=== PATIENT | female | born 2000 | race Caucasian/White ===

== ENCOUNTER 2022-07-17 04:26 | Emergency (ER) | payer BC, SELFPAY ==
[2022-07-17] VITALS (15 sets, daily range): BP systolic 105–148; BP diastolic 60–94; PULSE 68–233; RESP 11–23; TEMP 36.8–37.2; O2SAT 71–99; BMI 24.3
--- NOTE | 2022-07-17 04:20 | ECG_ITS ---
APPROVED REPORT Exam: Resting ECG HR:137 bpm ECG Measurements Heart Rate 137 AXES AL 147 P 73 QRSd 89 QRS 84 QT 330 T 38 QTc 410 Conclusion SINUS TACHYCARDIA NONSPECIFIC ST & T-WAVE ABNORMALITY ABNORMAL RHYTHM ECG UNCONFIRMED REPORT Electronically signed by : Nilton Callejas MD 07/21/2022 16:03:50
--- NOTE | 2022-07-17 04:30 | PC.NURSE ---
Patient arrived to er via wheelchair from home. Patient, upon arrival, was very anxious, unable to speak in complete sentences, was unable to discuss in length what happened and appeared to fixate on different parts of the conversation. Patient was concerned that her friend was not at bedside so her father got her friend so that the patients would calm down. patient is unable to control the movements in her right hand. Right hand continuously shakes and patient appears very concerned about her inability to stop the movements in her right hand.
--- NOTE | 2022-07-17 04:30 | HMH.EDGENADL ---
Discharge Plan Disposition Patient Disposition: Home, Self-Care Condition: Good Chief Complaint: Altered Mental Status Prescriptions Prescriptions: No Action No Known Home Medications Activity Restrictions/Add. Instructions Additional Instructions/Restrictions: At this time was felt you are safe to be discharged from the emergency department. Please refrain from substance abuse. If new or worsening symptoms please do not hesitate to return the emergency department. Clinical Impressions Clinical Impression: Encephalopathy, Alcohol intoxication Instructions Patient Instructions: DI for Altered Mental Status Discharge ED Provider: Semaj Bonilla Adult HPI <Semaj Bonilla MD - Last Filed: 07/17/22 07:47> General Chief complaint: Altered Mental Status Stated complaint: Intoxicated Time Seen by Provider: 07/17/22 04:31 History of Present Illness HPI narrative: Patient is a 22-year-old female with no pertinent past medical history presents to the emergency department for evaluation of intoxication. History is obtained by family members and friends at bedside, patient was [place] an amusement park, had drank multiple drinks at a friend's house, smoked out of a SWFT vape pen cartridge. Shortly after smoking of the vape pen cartridge patient became acutely encephalopathic, speaking nonsensically, flailing extremities with waxing and waning levels of consciousness. They present here for continued evaluation. Review of systems cannot be conducted secondary to encephalopathy. No history of trauma. Related Data Home Medications Medication Instructions Recorded Confirmed No Known Home Medications 07/17/22 07/17/22 Allergies Allergy/AdvReac Type Severity Reaction Status Date / Time Benzodiazepines Allergy Verified 07/17/22 04:54 PFSH <Semaj Bonilla MD - Last Filed: 07/17/22 07:47> [facility] Social History (Updated 07/17/22 @ 07:47 by Semaj Bonilla MD) Smoking Status: Never smoker alcohol intake: current current occupational status: employed Travel in the last 8 weeks: None <Semaj Bonilla MD - Last Filed: 07/17/22 07:47> ROS Obtained: Yes unobtainable due to mental status Physical Exam <Semaj Bonilla MD - Last Filed: 07/17/22 07:47> General General appearance: appears intoxicated and in distress Head Head exam: atraumatic and normocephalic Eye Eye exam: Present PERRL ENT ENT exam: Present mucous membranes moist Neck Neck exam: Present normal inspection Chest Chest inspection: Present normal inspection and symmetric chest wall rise Respiratory Respiratory exam: Present normal lung sounds bilaterally; Absent respiratory distress Cardiovascular Cardiovascular exam: Present normal rhythm and tachycardia Abdominal Exam Abdominal exam: Present soft; Absent tenderness Extremities Exam Extremities exam: Present normal inspection Neurological Exam Neurological exam: Present other (Waxing and waning levels of consciousness, perseverating, rhythmic jerking of the right upper extremity, intermittently conversational. GCS between 12 and 15 on different exams) Psychiatric Psychiatric exam: Present agitated Skin Skin exam: Present warm and dry Medical Decision Making <Semaj Bonilla MD - Last Filed: 07/17/22 07:47> [facility] Pt receiving controlled substance: No Vital Signs: 07/17/22 04:56 07/17/22 04:35 07/17/22 04:45 Temperature 99 F Temperature Source Oral Pulse Rate 233 H 114 H Pulse Rate [Apical] 119 H Respiratory Rate 23 16 19 Blood Pressure Blood Pressure [Left Arm] 136/79 Blood Pressure Mean Blood Pressure Mean [Left Arm] 98 Blood Pressure Source [Left Arm] Automatic Cuff Blood Pressure Position [Left Arm] Sitting 02 Sat by Pulse Oximetry 98 71 L 99 Oxygen Delivery Method Room Air 07/17/22 05:00 07/17/22 05:00 07/17/22 05:15 Temperature Temperature Source Pulse Rate 82 116 H Pulse Rate [
--- NOTE | 2022-07-17 04:40 | CT_ITS ---
PROCEDURE INFORMATION: Exam: CT Head Without Contrast Exam date and time: 07/17/2022 5:14 AM Age: 22 years old Clinical indication: Altered mental status/memory loss; Additional info: Acute encephalopathy TECHNIQUE: Imaging protocol: Computed tomography of the head without contrast. Radiation optimization: All CT scans at this facility use at least one of these dose optimization techniques: automated exposure control; mA and/or kV adjustment per patient size (includes targeted exams where dose is matched to clinical indication); or iterative reconstruction. COMPARISON: No relevant prior studies available. FINDINGS: Brain: No intracranial hemorrhage. No mass. No definite edema. Cerebral ventricles: No hydrocephalus. Paranasal sinuses: No acute sinusitis. Mastoid air cells: No significant effusion. Orbital cavities: Unremarkable as visualized. Bones/joints: No acute fracture. Soft tissues: Unremarkable. IMPRESSION: No definite acute intracranial abnormality. If symptoms persist, consider MRI.
[2022-07-17 04:45] LABS: VBG Base Excess -6.1 mmol/L (-2.4-2.3); VBG HCO3 19.9 mmol/L (23-30); VBG PCO2 38.9 mmol/L (35-51); VBG PH 7.33 mmol/L (7.31-7.41); VBG PO2 65.1 mmol/L (28-40); VBG Total CO2 21.1 mmol/L (23-27)
[2022-07-17 04:47] LABS: Basophils # 0.2 K/mm3 (0-0.2); Basophils % 1.4 % (0.1-2.0); Eosinophils # 0.2 K/mm3 (0.0-0.4); Eosinophils % 1.5 % (0.1-12.0); Hematocrit 42.2 % (37.0-47.0); Hemoglobin 13.9 g/dL (12.2-16.2); Lymphocytes # 4.6 K/mm3 (0.7-4.5); Lymphocytes % 36.1 % (10-50); Mean Corpuscular HGB Conc 32.9 g/dL (31.8-35.4); Mean Corpuscular Hemoglobin 29.7 pg (27.0-31.2); Mean Corpuscular Volume 90.3 fl (81-99); Mean Platelet Volume 7.2 fl (7.4-10.4); Monocytes # 0.8 K/mm3 (0.1-1.0); Monocytes % 6.4 % (1.7-9.3); Neutrophils # 6.9 K/mm3 (1.8-7.8); Neutrophils % 54.7 % (37.0-80.0); Platelet Count 507 K/mm3 (142-424); Red Blood Count 4.67 M/mm3 (4.20-5.40); Red Cell Distribution Width 13.1 % (11.5-17.5); White Blood Count 12.7 K/mm3 (4.8-10.8)
[2022-07-17 04:52] LABS: Ethyl Alcohol 140 mg/dl (0-10)
[2022-07-17 04:53] LABS: Alanine Aminotransferase 16 U/L (12-78); Albumin Level 4.4 g/dl (3.5-5.0); Albumin/Globulin Ratio 1.5 (1.1-1.8); Alkaline Phosphatase 75 U/L (38-126); Anion Gap 20.2 mEq/L (5-15); Aspartate Amino Transferase 34 U/L (14-36); Blood Urea Nitrogen 8 mg/dl (7-17); Calcium 8.9 mg/dl (8.4-10.2); Carbon Dioxide 21 mmol/L (22.0-30.0); Chloride 107 mmol/L (98-107); Estimated Glomerular Filt Rate 106 ml/min (>60); GFR (African American) 128 ML/MIN (>60); Glucose 124 mg/dl (74-100); Potassium 3.2 mmoL/L (3.5-5.1); Sodium 145 mmol/L (136-145); Total Protein,Serum 7.4 g/dl (6.3-8.2)
[2022-07-17 04:58] LABS: Acetaminophen < 10 ug/ml (10-30); Bilirubin,Total < 0.1 mg/dl (0.2-1.3); Salicylate < 1.0 mg/dL (2.0-20.0)
--- NOTE | 2022-07-17 05:00 | PC.NURSE ---
Patient was assisted to bedside commode with nurse and ermias Freitas. Patient was instable upon transfer. Needed assist x 2. Was unable to hold her balance and at one point during transfer collapsed and had to be assisted into bed. Patient immediately regained consciousness and was hemodynamically stable.
[2022-07-17 05:03] LABS: Microscopic, Urine URINE MICROSCOPIC (MICROSCOPIC)
[2022-07-17 05:08] LABS: Appearance,Urine CLEAR (Clear); Bilirubin,Urine Negative (Negative); Blood, Urine 2+ (Negative); Color,Urine YELLOW (Yellow); Glucose,Urine (UA) Negative (Negative); Ketones,Urine Negative (Negative); Leukocyte Esterase,Urine Negative (Negative); Nitrate,Urine Negative (Negative); Protein,Urine Negative (Negative); Specific Gravity, Urine <= 1.005 (1.005-1.030); Urobilinogen,Urine 0.2 EU/dl (0.2)
[2022-07-17 05:10] LABS: Urine Pregnancy, HCG Qual. Negative (Negative)
[2022-07-17 05:10] LABS: T4 (Thyroxine) 12.5 ug/dl (5.53-11.0)
[2022-07-17 05:12] LABS: Amorphous Sediment,Urine Trace /lpf
[2022-07-17 05:18] LABS: Benzodiazepines Screen,Urine Negative ng/ml (<200)
[2022-07-17 05:19] LABS: Amphetamine/Metha Screen,Urine Negative ng/ml (<1000)
[2022-07-17 05:20] LABS: Barbiturates Screen,Urine Negative ng/ml (<200); Cannabinoid Screen,Urine Negative ng/ml (<50)
[2022-07-17 05:21] LABS: Cocaine Screen,Urine Negative ng/ml (<300); Methadone Screen,Urine Negative ng/ml (<300)
[2022-07-17 05:22] LABS: Opiate Screen,Urine Negative ng/ml (<300)
[2022-07-17 05:23] LABS: Phencyclidine Screen,Urine Negative ng/ml (<25)
[2022-07-17 05:24] LABS: Thyroid Stimulating Hormone 2.13 uIU/mL (0.465-4.68)
[2022-07-17 05:45] LABS: Lactic Acid 6.2 mmol/L (0.7-2.1)
--- NOTE | 2022-07-17 06:03 | PC.NURSE ---
Patient is sitting in bed with father at bedside. Patients movements appear to be more controlled, especially with her right arm, which was moving more impulsively upon arrival. Patient is more coherent and calm and having appropriate conversation with her family. Patient ambulated again to the bedside toilet and maintained her balance independently, but should still be assist x 1 due to her earlier instability.
--- NOTE | 2022-07-17 06:33 | PC.NURSE ---
Pt resting quietly and comfortably in bed. Father and pt's friend at bedside. Lights dimmed for comfort. LR infusing to PIV well. No acute changes at this time.
--- NOTE | 2022-07-17 07:05 | PC.NURSE ---
Poison control called for an update, they s/w Dr. Bonilla
--- NOTE | 2022-07-17 07:10 | PC.NURSE ---
Pt sitting up and breakfast tray set up for pt.
[2022-07-17 07:59] LABS: Lactic Acid 1.9 mmol/L (0.7-2.1)
--- NOTE | 2022-07-17 08:28 | PC.NURSE ---
father at bedside
[2022-07-17 08:30] LABS: POC Glucose,Bedside 122 (70-110)
--- NOTE | 2022-07-17 08:41 | PC.NURSE ---
checked on pt , asked if had any needs and asked for blanket, no other needs at this time
[2022-07-17 09:25] LABS: Reflex Lactic Add Lactic Reflex
== END 2022-07-17 10:05 | disposition home or self-care (01) ==
PROVIDERS: Emergency Provider Emergency Medicine
DX: T51.0X1A Toxic effect of ethanol, accidental (unintentional), initial encounter (principal); G92.8 Other toxic encephalopathy; F10.129 Alcohol abuse with intoxication, unspecified; Y90.6 Blood alcohol level of 120-199 mg/100 ml; Z88.5 Allergy status to narcotic agent
CPT/HCPCS: 70450; 80053; 80305; 80329; 81001; 81025; 82803; 82962; 83605; 84436; 84443; 85025; 93005; 96365; 96366; 99285